=== PATIENT | female | born 1990 | race Caucasian/White ===

== ENCOUNTER 2017-01-21 23:20 | Emergency (ER) | payer SELFPAY ==
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
[2017-01-22 01:33] VITALS: BP 121/78; PULSE 78; RESP 16; TEMP 98.1; O2SAT 97
== END 2017-01-22 01:40 | disposition home or self-care (01) ==
DX: S63.615A Unspecified sprain of left ring finger, initial encounter (principal); F17.200 Nicotine dependence, unspecified, uncomplicated; Y08.89XA Assault by other specified means, initial encounter